=== PATIENT | female | born 1980 | race Two or more races ===

== ENCOUNTER 2017-09-10 15:15 | Inpatient (IN) | payer OTHER ==
[~2017-09-10] VITALS: Ht 167.6 cm; Wt 85.7 kg
[2017-09-10] MEDS ORDERED: GABAPENTIN100 MG PO (16:25)
[2017-09-10] MEDS ORDERED: METAFOLBIC TAB1 EACH PO (16:26)
[2017-09-10] MEDS ORDERED: MOBIC15 MG PO (16:26)
[2017-09-10] MEDS ORDERED: NORFLEX PO (16:26)
[2017-09-19] MEDS ORDERED: AMOX-CLAV 875-1 EACH PO (15:37)
[2017-09-19] MEDS ORDERED: CLONAZEPAM1 MG PO (15:37)
[2017-09-19] MEDS ORDERED: NEURONTIN800 MG PO (15:37)
[2017-09-19] MEDS ORDERED: COLACE100 MG PO (15:37)
[2017-09-19] MEDS ORDERED: PERCOCET 5-3251 EACH PO (15:37)
[2017-09-20] MEDS ORDERED: NORFLEX100MG PO (09:58)
== END 2017-09-20 14:34 | disposition home or self-care (01) | DRG 520 ==
LOC: RECOVERY 09-12 15:15 → O/R 09-19 05:57 → RECOVERY 09-19 05:57 → O/R 09-19 10:00 → PED 09-19 17:45
PROVIDERS: Orthopaedic Surgery Orthopaedic Surgery of the Spine
PROC: 0ST20ZZ Resection of Lumbar Vertebral Disc, Open Approach (ICD-10-PCS; 2017-09-19)
PROC: 00NY0ZZ Release Lumbar Spinal Cord, Open Approach (ICD-10-PCS; principal; 2017-09-19 14:30)
DX: M47.26 Other spondylosis with radiculopathy, lumbar region (principal); M51.16 Intervertebral disc disorders with radiculopathy, lumbar region